=== PATIENT | female | born 1950 | race Caucasian/White ===

== ENCOUNTER 2017-06-23 16:42 | Emergency (ER) | payer OTHER, MEDICAID ==
[~2017-06-23] VITALS: Ht 162.6 cm; Wt 94.5 kg
[~2017-06-23 16:42] MED LIST: NITR-58 PO
[2017-06-23 16:46] VITALS: Ht 162.6 cm; Wt 94.5 kg
[2017-06-23] MEDS ORDERED: SOD CHLORIDE 0.9% 500 ML IV STA (16:58)
[2017-06-23] MEDS ORDERED: KETOROLAC 15 MG INJ IV STA (16:58)
[2017-06-23 17:16] LABS: BASOPHILS % 0.3 % (0.0-2.0); EOSINOPHILS # 0.2 10^3/ul (0.0-0.5); EOSINOPHILS % 2.1 % (0.0-7.0); HEMATOCRIT 39.2 % (37.0-47.0); HEMOGLOBIN 13.7 g/dl (12.0-16.0); LYMPHOCYTES # 3.4 10^3/ul (0.8-2.9); LYMPHOCYTES % 38.6 % (15.0-51.0); MEAN CORPUSCULAR HEMOGLOBIN 29.9 pg (29.0-33.0); MEAN CORPUSCULAR HGB CONC 34.9 g/dl (32.0-37.0); MEAN CORPUSCULAR VOLUME 85.6 fl (82.0-101.0); MEAN PLATELET VOLUME 9.3 fl (7.4-10.4); MONOCYTES % 11.1 % (0.0-11.0); NEUTROPHILS % 47.7 % (39.0-77.0); PLATELET COUNT 291 10^3/UL (140-415); RED BLOOD COUNT 4.58 10^6/ul (4.20-5.40); RED CELL DISTRIBUTION WIDTH 13.3 % (11.5-14.5); WHITE BLOOD COUNT 8.7 10^3/ul (4.8-10.8)
--- NOTE | 2017-06-23 17:20 | ERA ---
ER Documentation Chief Complaint Date/Time DATE: 06/23/17 TIME: 17:18 Chief Complaint Complains of chest pain x 2 days HPI This is a 66-year-old female who presents with 2 days of chest pain. A congressional representative was used. She describes the chest pain is sharp, central and pleuritic. She notes occasional mild shortness of breath. She thinks that because she slept without assured on she may have caught a cold though she denies any fevers, cough. She denies any recent travel or immobilization, no calf swelling or pain. No recent travels or trips. She denies exertional symptoms diaphoresis or nausea. No abdominal pain. ROS All systems reviewed and are negative except as per history of present illness. Medications Home Meds Active Scripts Ibuprofen* (Motrin*) 800 Mg Tab, 800 MG PO Q6H Y for PAIN AND OR ELEVATED TEMP, #30 TAB Prov:EMILIO CARRION MD 06/23/17 Discontinued Reported Medications [None] No Conflict Check 10/18/09 Discontinued Scripts Nitrofurantoin Monohyd Macrocr* (Macrobid*) 100 Mg Capsr, 100 MG PO BID for 7 Days, CAP Prov:JENNIFER CASTELLANO 07/17/15 Allergies Allergies: Coded Allergies: No Known Allergy (Unverified , 06/23/17) PMhx/Soc History of Surgery: Yes (HYSTERECTOMY) Anesthesia Reaction: No Hx Neurological Disorder: No Hx Respiratory Disorders: No Hx Cardiac Disorders: No Hx Psychiatric Problems: No Hx Miscellaneous Medical Probl: No Hx Alcohol Use: No Hx Substance Use: No Hx Tobacco Use: No Smoking Status: Never smoker FmHx Family History: No diabetes Physical Exam Vitals Vital Signs Date Time Temp Pulse Resp B/P Pulse Ox O2 Delivery O2 Flow Rate FiO2 06/23/17 17:17 Nasal Cannula 2 06/23/17 16:46 98.5 63 20 131/61 96 Physical Exam General: Well developed, well nourished, no acute distress Head: Normocephalic, atraumatic. Eyes: Pupils equally reactive, EOM intact ENT: Moist mucous membranes Neck: Supple, no lymphadenopathy Respiratory: Lungs clear bilaterally, no distress Cardiovascular: RRR, no murmurs, rubs, or gallops Abdominal: Soft, non-tender, non-distended, no peritoneal signs : Deferred MSK: No edema, no unilateral swelling, 5/5 strength, no pulse deficits Neurologic: Alert and oriented, moving all extremities, normal speech, no focal weakness, no cerebellar signs Skin: No rash Psych: Normal mood Result Diagram: 06/23/17 1700 06/23/17 1700 Results 24 hrs Laboratory Tests Test 06/23/17 17:00 White Blood Count 8.710^3/ul Red Blood Count 4.5810^6/ul Hemoglobin 13.7g/dl Hematocrit 39.2% Mean Corpuscular Volume 85.6fl Mean Corpuscular Hemoglobin 29.9pg Mean Corpuscular Hemoglobin Concent 34.9g/dl Red Cell Distribution Width 13.3% Platelet Count 86450^3/UL Mean Platelet Volume 9.3fl Neutrophils % 47.7% Lymphocytes % 38.6% Monocytes % 11.1% Eosinophils % 2.1% Basophils % 0.3% Nucleated Red Blood Cells % 0.0/100WBC Neutrophils # (Manual) 410^3/ul Lymphocytes # 3.410^3/ul Monocytes # 1.010^3/ul Eosinophils # 0.210^3/ul Basophils # 0.010^3/ul Nucleated Red Blood Cells # 0.010^3/ul D-Dimer 281.74ng/ml D-Dimer Comment Sodium Level 139mmol/L Potassium Level 3.8mmol/L Chloride Level 106mmol/L Carbon Dioxide Level 23mmol/L Anion Gap 14 Blood Urea Nitrogen 16mg/dl Creatinine 0.81mg/dl Glucose Level 103mg/dl Calcium Level 8.7mg/dl Troponin I < 0.012ng/ml Current Medications Medications (Trade) Dose Ordered Sig/[place] Route PRN Reason Start Time Stop Time Status Last Admin Dose Admin Sodium Chloride (NS) 500 ml @ 500 mls/hr Q1H STAT IV 06/23/17 16:58 06/23/17 17:57 DC 06/23/17 17:12 Ketorolac Tromethamine (Toradol) 15 mg ONCE STAT IV 06/23/17 16:58 06/23/17 17:00 DC 06/23/17 17:13 Procedures/MDM EKG, MONITORS, & DIAGNOSTIC IMAGING: EKG: I reviewed and interpreted a 12-lead EKG. Rhythm: Normal sinus rhythm Ectopy: None Intervals: No abnormalities ST segments: No elevations or depressions T waves: No contiguous inversions Chest x-ray: I reviewed and interpreted a 1 view of the chest Mediastinum: No enlargement Cardiac silhouette: Borderline cardiomegaly Airspace: Clear lung helton bilaterally without evidence of pneumothorax Bones: No evidence of fracture LAB INTERPRETATION: Negative d-dimer, negative troponin MEDICAL DECISION MAKING: The patient's history, physical exam and clinical presentation is concerning for likely pleurisy given her description of symptoms. Also consider possible costochondritis. Very low clinical concern for cardiac etiology despite her age. She has no significant risk factors other than age. She has no exertional symptoms and only pleuritic pain. Patient has had 2 days of symptoms and has a nonischemic EKG. Given her age I do believe she warrants an EKG and troponin but I do not feel this is consistent with cardiac etiology. The patient does have pleuritic component and she meets Wells low risk criteria therefore a d-dimer will be ordered. No evidence of migratory pain to suggest dissection. Based on the patient's clinical exam and history and risk factors, I have a much lower clinical concern for acute aortic dissection, pneumothorax, pneumonia , cardiac tamponade HEART Score: 2 MACE Rate: Less than 1.7% Shared Decision Making: We had a conversation regarding risk stratification, MACE rate, and the risks, benefits, alternatives of disposition planning options. Disposition planning: If negative workup in the emergency room outpatient follow -up would be appropriate ER COURSE: Toradol provided with dramatic improvement of her symptoms. She does describe social stressors at home. The patient's d-dimer and troponin are negative. The patient's symptoms are improving. Again no concern for dissection at this time. The patient will benefit from a short course of nonsteroidal anti- inflammatories. Return precautions were discussed with patient using an coo and she verbalizes understanding. I kept the patient and/or family informed of laboratory and diagnostic imaging results throughout the emergency room course. DISPOSITION PLAN: We discussed follow up with the patient's primary care doctor within 24 to 48 hours as needed. We also discussed return to the emergency room for worsening symptoms or worsening condition. Outpatient referral: [None required] Discharge Medications: Motrin Departure Diagnosis: Primary Impression: Pleurisy Condition: EMILIO Munoz MD Jun 23, 2017 17:20
--- NOTE | 2017-06-23 17:34 | RADRPT ---
PROCEDURE: Chest x-ray CLINICAL INDICATION: Chest pain TECHNIQUE: Chest single view COMPARISON: 10/18/2009 FINDINGS: There is stable mild cardiomegaly. The pulmonary vessels are normal in caliber. The lungs are clear . The costophrenic angles are sharp. The visualized bony thorax is unremarkable. IMPRESSION: No acute cardiopulmonary disease. Stable mild cardiomegaly RPTAT: HH .Todd Majano MD, MD Date Time Electronically viewed and signed by .Todd Majano MD, on 06/23/2017 17:34 .W/
[2017-06-23 17:38] LABS: D-DIMER 281.74 ng/ml (<460)
[2017-06-23 17:45] LABS: ANION GAP 14 (8-16); BLOOD UREA NITROGEN 16 mg/dl (7-20); CALCIUM 8.7 mg/dl (8.4-10.2); CARBON DIOXIDE 23 mmol/L (21-31); CHLORIDE 106 mmol/L (97-110); CREATININE 0.81 mg/dl (0.44-1.00); GLUCOSE 103 mg/dl (70-220); POTASSIUM 3.8 mmol/L (3.5-5.1); SODIUM 139 mmol/L (135-144)
[2017-06-23] MEDS ORDERED: IBUP800T25 PO (17:51)
[2017-06-23 17:57] LABS: TROPONIN-I < 0.012 ng/ml (0.00-0.12)
[2017-06-23 18:05] VITALS: BP 145/78; PULSE 85; RESP 18
== END 2017-06-23 18:09 | disposition home or self-care (01) ==
LOC: E/R 16:42
DX: R09.1 Pleurisy (principal)
CPT/HCPCS: 36415; 71010; 80048; 84484; 85025; 85378; 93005; 96374; 99285; J1885; J7040

== ENCOUNTER 2019-01-18 20:30 | Emergency (ER) | payer OTHER ==
[~2019-01-18] VITALS: Ht 160 cm; Wt 95.0 kg
[~2019-01-18 20:30] MED LIST changes: +IBUP800T48 PO; -NITR-58 PO
[2019-01-18 20:39] VITALS: Ht 160 cm; Wt 95.0 kg
--- NOTE | 2019-01-18 22:43 | ERD ---
ER Documentation Chief Complaint Chief Complaint COUGH X4DAYS; TOOK TYLENOL 2HRS AGO HPI 68-year-old female, presents to the emergency department, complaining of 4 days with worsening of upper respiratory symptoms including fever, chest congestion, productive cough of greenish sputum. She denies chest pain, no shortness of breath. The patient has been taking knce-[id number]-sxiwtrb medications without improvement of the symptoms. ROS All systems reviewed and are negative except as per history of present illness. Medications Home Meds Active Scripts Ibuprofen* (Motrin*) 800 Mg Tab, 800 MG PO Q6H PRN for PAIN AND OR ELEVATED TEMP, #30 TAB Prov:EMILIO CARRION MD 06/23/17 Allergies Allergies: Coded Allergies: No Known Allergy (Unverified , 06/23/17) PMhx/Soc History of Surgery: Yes (HYSTERECTOMY) Anesthesia Reaction: No Hx Neurological Disorder: No Hx Respiratory Disorders: No Hx Cardiac Disorders: No Hx Psychiatric Problems: No Hx Miscellaneous Medical Probl: No Hx Alcohol Use: No Hx Substance Use: No Hx Tobacco Use: No Smoking Status: Never smoker Physical Exam Vitals Vital Signs Date Temp Pulse Resp B/P (MAP) Pulse Ox O2 O2 Flow FiO2 Time Delivery Rate 01/18/19 87 20 97 21 23:19 01/18/19 99.6 89 22 136/74 96 20:39 (94) Physical Exam Patient is in moderate distress due to cough and fever, vital signs showed fever. EYES: PERRLA, EOMI, injected sclerae EARS: Canals clear, erythematous tympanic membranes THROAT: Erythematous oropharynx. NECK: Supple, No lymphadenopathy. Full ROM without pain or tenderness. HEART: RRR, no rubs, murmurs, clicks or gallops. LUNGS: Bilateral rhonchi to auscultation. ABDOMEN: Soft, non-tender without masses or hepatosplenomegaly. EXTREMITIES: No edema bilaterally. BACK: Full ROM, no deformity, normal back exam NEURO: Cranial nerves grossly intact, no motor or sensory deficit Results 24 hrs Current Medications Medications Dose Sig/[place] Start Time Status Last (Trade) Ordered Route PRN Stop Time Admin Dose Reason Admin Sodium 500 ml @ Q1H STAT 01/18/19 DC 01/18/19 Chloride 500 mls/hr IV 23:03 23:30 01/19/19 00:02 125 mg ONCE ONCE 01/18/19 DC 01/18/19 Methylprednis IV 23:30 23:30 olone Sodium 01/18/19 23:31 Succinate (Solu-Medrol) Albuterol 5 mg ONCE STAT 01/18/19 DC 01/18/19 (Proventil HHN 23:03 23:17 0.083% (Neb)) 01/18/19 23:05 Ipratropium 0.5 mg ONCE ONCE 01/18/19 DC 01/18/19 [place] [facility] 23:30 23:17 (Atrovent 01/18/19 23:31 0.02% (Neb)) 500 mg ONCE STAT 01/18/19 DC 01/18/19 Azithromycin PO 23:03 23:30 (Zithromax) 01/18/19 23:05 Ceftriaxone 50 ml @ ONCE STAT 01/18/19 DC 01/18/19 Sodium 100 mls/hr IVPB 23:03 23:30 01/18/19 23:32 Ketorolac 15 mg ONCE STAT 01/18/19 DC 01/18/19 Tromethamine IV 23:03 23:30 (Toradol) 01/18/19 23:05 Procedures/MDM At the time of discharge, patient with nontoxic appearance, vital signs stable, no respiratory distress. Differential diagnosis include but not limited to: upper vs lower respiratory infection bacterial/viral/fungal. Asthma, COPD, pneumonitis, allergies, GERD. Less likely pulmonary embolism, cardiac related or malignancy, but still is a possibility. Physical examination and clinical presentation consistent most likely with viral infection with early superimposed bacterial infection. During the ED course the patient remained stable, no new complaints. Treatment options and clinical impression discussed with the patient who agrees with management. The patient is stable to be treated outpatient and will be discharged home. Some side effects of prescribed medications (headache, rash, nausea, vomiting, diarrhea, interactions with other medications) were reviewed. The patient needs to follow up with the primary care provider in the next 48h. If symptoms persist, worsen or new symptoms develop, then patient should return to the ED immediately. Disclaimer: Inadvertent spelling and grammatical errors are likely due to EHR/dictation software use and do not reflect on the overall quality of patient care. Also, please note that the electronic time recorded on this note does not necessarily reflect the actual time of the patient encounter. Departure Diagnosis: Primary Impression: Cough Additional Impression: Fever Condition: Stable Additional Instructions: Muchas padma por [facility] para rdz servicio. Esperamos que en rdz visita a la rosario de emergencia rdz problema medico haya sido solucionado y que se sienta mucho mejor. Para estar seguros que rdz mejoria sigue en proceso, le pedimos el favor de hacer tressa dk de seguimiento medico con rdz doctor primario en los proximos 2-4 rodriguez. Lleve con usted estos documentos y las medicinas recetadas. Si ewelina sintomas empeoran, NO SE ESPERE, por favor regrese a rosario de emergencia INMEDIATAMENTE. En emily que usted no tenga un mdico de atencin primaria: Llame al mdico o clnica comunitaria de referencia que aparece abajo la las horas de consultorio para hacer tressa dk para que le vean. CLINICAS: [facility] [phone] [facility] [phone] [facility]. [facility] [phone] [facility]. [facility] [phone] [facility]. [place] [id number] [phone] [facility]. [phone] [place] Jan 18, 2019 22:43
[2019-01-18] MEDS ORDERED: AZITHROMYCIN 250 MG TAB PO STA (23:03)
[2019-01-18] MEDS ORDERED: CEFTRIAXONE 1 GM/50 ML (PMX) 50 ML IVPB STA (23:03)
[2019-01-18] MEDS ORDERED: KETOROLAC 15 MG INJ IV STA (23:03)
[2019-01-18] MEDS ORDERED: SOD CHLORIDE 0.9% 500 ML IV STA (23:03)
[2019-01-18] MEDS ORDERED: ALBUTEROL 0.083% (NEB) 2.5 MG/3 ML AMP HHN STA (23:03)
[2019-01-18] MEDS ORDERED: METHYLPREDNISOLONE 125 MG INJ IV ONE (23:30)
[2019-01-18] MEDS ORDERED: IPRATROPIUM (NEB) 0.5 MG/2.5 ML AMP INH ONE (23:30)
[2019-01-19] MEDS ORDERED: ALBU8.5H8 INH (00:44)
[2019-01-19] MEDS ORDERED: AZIT250T PO (00:44)
[2019-01-19] MEDS ORDERED: INHA-3 MC (00:44)
[2019-01-19] MEDS ORDERED: AMOX500C2 PO (00:44)
[2019-01-19 01:22] VITALS: BP 140/63; PULSE 76; RESP 16
== END 2019-01-19 01:24 | disposition home or self-care (01) ==
LOC: FTE 20:30
DX: R05 Cough (principal); R50.9 Fever, unspecified
CPT/HCPCS: 94664; 96361; 96365; 96375; 99284; J0696; J1885; J2930; J7040

== ENCOUNTER 2019-01-26 18:09 | Emergency (ER) | payer OTHER ==
[~2019-01-26] VITALS: Ht 165.1 cm; Wt 93.3 kg
[~2019-01-26 18:09] MED LIST changes: +ALBU8.5H8 INH; +AMOX500C2 PO; +AZIT250T PO; +INHA-3 MC
[2019-01-26 18:13] VITALS: BP 139/65; PULSE 86; RESP 20; Ht 165.1 cm; Wt 93.3 kg
== END 2019-01-26 21:53 | disposition left against medical advice (07) ==
LOC: FTE 18:09
DX: Z53.21 Procedure and treatment not carried out due to patient leaving prior to being seen by health care provider (principal)